=== PATIENT | female | born 1965 | race Caucasian/White ===

== ENCOUNTER 2017-12-14 08:29 | Day surgery (SDC) | payer OTHER, MEDICAID ==
[~2017-12-14 08:29] MED LIST: BALANCED SALT SOLN 15 ML OPH IRRIG; MITOMYCIN 5 MG INJ OP; MOXIFLOXACIN 0.5% 3 ML OPH OPER; PREDNISOLONE ACET 1% 5 ML OPH OPER; PROPARACAINE 0.5% 15 ML OPH OPER; SOD CHLORIDE 0.9% 1,000 ML IV
[2017-12-14] MEDS: PROPARACAINE 0.5% 15 ML OPH OPER (09:17)
[2017-12-14] MEDS: PREDNISOLONE ACET 1% 5 ML OPH OPER (09:18)
[2017-12-14] MEDS: MOXIFLOXACIN 0.5% 3 ML OPH OPER (09:19)
[2017-12-14] MEDS ORDERED: DIPHENHYDRAMINE 50 MG INJ IV (11:00)
[2017-12-14] MEDS ORDERED: ONDANSETRON 4 MG INJ IV (11:00)
[2017-12-14] MEDS ORDERED: OXYCODONE/ACETAMINOPHEN (5/325) TAB PO ×2 (11:00)
[2017-12-14] MEDS ORDERED: EPHEDrine SULFATE 50 MG/5 ML SYG IV (11:00)
[2017-12-14] MEDS ORDERED: MEPERIDINE 25 MG INJ IV (11:00)
[2017-12-14] MEDS ORDERED: METOCLOPRAMIDE 10 MG INJ IV (11:00)
[2017-12-14] MEDS ORDERED: MIDAZOLAM 1 MG/ML 2 ML INJ IV (11:00)
[2017-12-14] MEDS ORDERED: hydrALAzine 20 MG INJ IV (11:00)
[2017-12-14] MEDS ORDERED: FENTAnyl 50 MCG/ML VIAL IV ×3 (11:00)
[2017-12-14] MEDS ORDERED: LABETALOL HCL 20MG INJ IV (11:00)
[2017-12-14] MEDS ORDERED: PROPOFOL 0 ML (11:02)
[2017-12-14] MEDS: LIDOCAINE 2%/EPI MPF (SDV) 20 ML VIAL INJ (11:15)
[2017-12-14] MEDS: TETRACAINE 0.5% 4 ML OPH LEFT EYE (11:15)
[2017-12-14] MEDS ORDERED: TOBRAMYCIN/DEXAMETH 3.5 GM OPH OINT (11:58)
[2017-12-14] MEDS: TOBRAMYCIN/DEXAMETH 3.5 GM OPH OINT LEFT EYE (12:00)
[2017-12-14] MEDS ORDERED: LIDOCAINE 2%/EPI (MDV) 20ML INJ INJ (13:30)
== END 2017-12-14 13:24 | disposition home or self-care (01) ==
LOC: SDS 08:29
DX: H11.002 Unspecified pterygium of left eye (principal); I10 Essential (primary) hypertension; E11.9 Type 2 diabetes mellitus without complications
CPT/HCPCS: 65426; 82962; 88305